=== PATIENT | male | born 1960 | race Caucasian/White ===

== ENCOUNTER 2017-05-12 15:28 | Emergency (ER) | payer MEDICAID ==
[~2017-05-12] VITALS: Ht 177.8 cm; Wt 115.0 kg
[2017-05-12 15:30] VITALS: BP 118/78
== END 2017-05-12 17:42 | disposition left against medical advice (07) ==
LOC: ER 15:45
DX: R10.9 Unspecified abdominal pain (principal); Z53.21 Procedure and treatment not carried out due to patient leaving prior to being seen by health care provider